=== PATIENT | male | born 1950 | race Caucasian/White ===

== ENCOUNTER 2021-01-31 00:34 | Outpatient (CLI) | payer BC, MEDICARE, SELFPAY ==
--- NOTE | 2021-01-31 14:30 | ST.MBS_ITS ---
Date of Service Date of service: 01/31/21 Time of Service: 14:15 Modified Barium Swallow Study Findings: Patient referred for Modified Barium Swallow Study from Dr. Molina given history of chronic GERD, report of pharyngeal dysphagia and globus sensation. Onset: 01/14/2021 HPI: Patient is 70 YO M referred for VFSS to rule out pharyngeal dysphagia in setting of Chronic GERD with throat clearing, globus sensation. PMHx: Hyperlipidemia. Obesity. Bilateral hearing loss. Hypertension. Venous insufficiency. Umbilical hernia. DJD. Edema. Dyspnea. Previous Imaging/results: Flexible Laryngoscopy 01/14/2021: ?This revealed a normal appearing nasopharynx, with normal niurka. There are no masses or lesions. The oropharynx, vallecula, epiglottis, supraglottis, glottis, subglottis, pryriform sinuses and hypopharynx are within normal limits. True vocal cord motion is bilaterally symmetric, and preserved with excellent excursion and midline approximation.? SUBJECTIVE: Patient reports primary symptom of globus sensation present during meals as well as at baseline. Reports this sensation for several years. Denies frequent coughing/choking. Notes additional sensation of pharyngeal residue with dry foods such as large bites of rough/crusty bread. Notes 1x pneumonia, several years ago after a cold. Denies voice changes. Endorses wheezing, exertional SOB/dyspnea which is consistent with ENT observations 01/14/21. OBJECTIVE: EAT-10 questionnaire: 5 (Score of 3 or higher may indicate problems swallowing efficiently and safely. Oral-motor and peripheral exam: Unremarkable. INSTRUMENTAL SWALLOW ASSESSMSENT: Videofluoroscopic Swallow Evaluation (VFSE/MBSS) was conducted in the lateral projection by Speech-Language Pathologist, in collaboration with Radiologist, to evaluate oropharyngeal swallow function. Anatomic view under fluoroscopy: WFL PO barium contrast trials: Oral barium water soluble contrast was administered as follows: IDDSI Level 0 Varibar thin liquid (40% w/v) IDDSI Level 4 Varibar pudding/pureed/extremely thick (40% w/v) IDDSI Level 7 Regular Solid: 1/2 maria luz cracker coated in 3 mL Varibar pudding; 13 mm barium tablet PHYSIOLOGIC FINDINGS Oral Phase 1 Lip Closure: [0-No labial escape] [1-Interlabial escape; no progression to anterior lip] [2-Escape from interlabial space or lateral juncture; no extension beyond shellie border] [3-Escape progressing to mid-chin] [4-Escape beyond mid-chin] 2 Tongue Control: [0- Cohesive bolus between tongue to palatal seal] [1- Escape to lateral buccal cavity/floor of mouth ] [2- Posterior escape of less than half of bolus] [3- Posterior escape of greater than half of bolus] 3 Bolus Preparation/Mastication: [0- Timely and efficient chewing/mashing] [1- Slowed/prolonged chewing/mashing with complete recollection] [2- Disorganized chewing/mashing with solid pieces of bolus unchewed] [3- Minimal chewing/mashing with majority of bolus unchewed] 4 Bolus Transport/Lingual Motion: [0- Brisk tongue motion] [1- Delayed initiation of tongue motion] [2- Slowed tongue motion; 2 or less AP movements] [3- Repetitive/disorganized tongue motion] [4- Minimal to no tongue motion] 5 Oral residue: [0- Complete oral clearance] [1- Trace residue lining oral structures] [2- Residue collection on oral structures] [3- Majority of bolus remaining; >50% of bolus] [4- Minimal to no clearance] Location: tongue 6 Initiation of pharyngeal swallow: [0- Bolus head at posterior angle of ramus; first hyoid excursion] [1- Bolus head in valleculae] - pudding [2- Bolus head at posterior laryngeal surface of epiglottis] - regular solids [3- Bolus head in pyriform sinus] ? thin liquid [4- No visible initiation at any location] Pharyngeal Phase 7 Velar Elevation: [0- No bolus between soft palate and pharyngeal wall ] [1- Trace column of contrast or air between soft palate and pharyngeal wall] [2- Escape to nasopharynx] [3- Escape to nasal cavity] [4- Escape to nostril with/without emission] 8 Laryngeal Elevation: [0- Complete superior movement of thyroid cartilage with complete approximation of arytenoids to epiglottic petiole ] [1- Partial superior movement of thyroid cartilage with partial approximation of arytenoids to epiglottic petiole] [2- Minimal superior movement of thyroid cartilage with minimal approximation of arytenoids to epiglottic petiole] [3- No superior movement of thyroid cartilage] 9 Anterior Hyoid Excursion: [0- Complete anterior movement] [1- Partial anterior movement] [2- No anterior movement] 10 Epiglottic Movement: [0- Complete inversion] [1- Partial inversion] [2- Absent/No inversion] 11 Laryngeal Vestibule Closure: [0- Complete; no air/contrast in laryngeal vestibule] [1- Incomplete; narrow column of air/contrast in laryngeal vestibule] [2- None; wide column of air/contrast in laryngeal vestibule] 12 Pharyngeal Stripping Wave: [0- Present; complete] [1- Present; diminished] [2- Absent] 13 Pharyngeal Contraction: [0- Complete] [1- Incomplete; pseudodiverticulae] [2- Unilateral bulging] [3- Bilateral bulging] [DNT; lack of AP view] 14 PES/UES Opening: [0- Complete distension and complete duration; no obstruction of flow] [1- Partial distension and partial duration; partial obstruction of flow] [2- Minimal distension and minimal duration; marked obstruction of flow] [3- No distension with total obstruction of flow] 15 Tongue Base Retraction: [0- No contrast between tongue base and posterior pharyngeal wall] [1- Trace column of contrast between tongue base and posterior pharyngeal wall] [2- Narrow column of contrast between tongue base and posterior pharyngeal wall] [3- Wide column of contrast between tongue base and posterior pharyngeal wall ] [4- No visible posterior motion of tongue base] 16 Pharyngeal residue: [0-Complete pharyngeal clearance] pudding/solids [1- Trace residue within or on pharyngeal structures] (thin liquids) [2- Collection of residue within or on pharyngeal structures ] [3- Majority of residue within or on pharyngeal structures ] [4- Minimal to no pharyngel clearance] Location: Pyriform sinuses [place] Pharyngeal Residue Severity Rating Scale (YPRS) (Kerrie, et al, 2015) Vallecula Residue Severity [I None 0% No residue II Trace 1-5% Trace coating of the mucosa III Mild 5-25% Epiglottic ligament visible IV Moderate 25-50% Epiglottic ligament covered V Severe >50% Filled to epiglottic rim] Pyriform Sinus Residue Severity [I None 0% No residue II Trace 1-5% Trace coating of the mucosa III Mild 5-25% Up wall to quarter full IV Moderate 25-50% Up wall to half full V Severe >50% Filled to aryepiglottic fold] Esophageal Phase 17 Esophageal Clearance Upright Position: [0-Complete clearance; esophageal coating ] [1- Esophageal retention] [2- Esophageal retention with retrograde flow below pharyngoesophageal segment/(PES/UES)] [3- Esophageal retention with retrograde flow through pharyngoesophageal segmen t/(PES/UES)] [4- Minimal to no esophageal clearance] [DNT; lack of AP view] NOTE: This study was performed for interpretation only of the oropharyngeal and pharyngoesophageal domains of swallowing. It is not intended to diagnose any other radiologic abnormalities or substitute for a formal esophagram study. Overall 8-Point Penetration-Aspiration Scale (PAS) (Katlyn, et al, 1996) 1 - No material enters the airway. 2 - Material enters the airway, remains above the vocal folds, and is ejected from the airway. - only for barium tablet with thin liquids 3 - Material enters the airway, remains above the vocal folds, and is not ejected from the airway. 4 - Material enters the airway, contacts the vocal folds, and is ejected from the airway. 5 - Material enters the airway, contacts the vocal folds, and is not ejected from the airway. 6 - Material enters the airway, passes below the vocal folds, and is ejected into the larynx or out of the airway. 7 - Material enters the airway, passes below the vocal folds, and is not ejected from the trachea despite effort. 8 - Material enters the airway, passes below the vocal folds, and no effort is made to eject. Clinical Indicator(s) of Prandial/Postprandial Aspiration: [N/A] [Cough] [Throat Clear] [Wet vocal quality] [Postural change: ] [Facial Grimace] [Other: ] Trialed Compensatory Swallow Strategies & Outcome: Postures: n/a Maneuvers: n/a Bolus Modifications: Reduced Volume - successful Dysphagia Outcome and Severity Scale (SHAY) LEVEL 6 - Full PO: normal diet - Within functional limits/modified independence IMPRESSIONS: WFL oropharyngeal swallow function, noting mild differences in swallow onset timing, laryngeal motility, presentation consistent with normal aging. Globus sensation likely 2/2 GERD or sensation changes s/p removal of salivary gland. Swallow safety is preserved. swallow efficiency is preserved. Patient appears to be at low risk for potential aspiration PNA, pulmonary compromise, malnutrition, or dehydration. Diet modification is not indicated. Specialist referrals: Consider GI (barium esophagram) if no improvement in symptoms following medication/lifestyle changes. PLAN: No further [employer] follow-up needed at this time. Return to ENT for further management. Diet recommendation: IDDSI Level 7-Regular Solids 0-Thin Liquids Medications: As tolerated. Diet texture modification is per patient's preference. Risk Management: Behavioral reflux precautions, including upright position during + 90 mins after meals. Control risk factors for aspiration pneumonia via (a) thorough oral hygiene & (b) maintaining physical mobility as tolerated Thank you for allowing me to take part in this patient's care. Please feel free to contact me with any questions/concerns. Sharon Fuentes M.S., [facility]-[employer] Speech Language Pathologist [phone] CODING: Time Spent: 40 minutes [employer] treatment code: 84666 Coding CPT Codes MOTION FLUOROSCOPY/SWALLOW - [id number] ([id number])
--- NOTE | 2021-01-31 14:30 | DI.RAD_ITS ---
Exam(s) RF MODIFIED SPEECH BA SWALLOW TECHNIQUE: Modified barium swallow was performed in conjunction with speech pathology. CONTRAST MATERIAL: Thin barium, thick barium and barium on a gram cracker were mid administered. . COMPARISON: No exams were available for comparison FINDINGS: Note that this is not a dedicated esophagram, distal esophagus not evaluated. There is normal oral transit. There was minimal laryngeal penetration observed in 1 instance with sw allowing thin liquids. There is no evidence of aspiration. No significant residue in vallecular or piriform sinuses. Speech pathology report to follow. . . . IMPRESSION: Minimal laryngeal penetration with thin barium. RADIATION DOSE DELIVERED: denis Mcbride=6.55 mGy
[2021-01-31] MEDS: Barium Sulfate 81% w/w for Oral Suspension 148 GM BTL 60 GM PO (14:56)
== END 2021-01-31 00:54 ==
PROVIDERS: PCP Family Medicine; Visit Provider Speech-Language Pathologist
DX: R13.13 Dysphagia, pharyngeal phase (principal); K21.9 Gastro-esophageal reflux disease without esophagitis
CPT/HCPCS: 92611; 74221